=== PATIENT | male | born 1995 | race Caucasian/White ===

== ENCOUNTER 2016-06-21 11:53 | Emergency (ER) | payer OTHER ==
[~2016-06-21] VITALS: Ht 188 cm; Wt 93.0 kg
[~2016-06-21 11:53] MED LIST: FLEXERIL10 MG PO; HYDROCODONE1 TABLET PO
[2016-06-21] MEDS ORDERED: NOMEDS XX (12:24)
--- NOTE | 2016-06-21 12:34 | Emergency Room Report ---
History of Present Illness Time Seen by [id number] Presenting Problem in Triage Pt arrived:Walked Presenting Problem:right testicular pain x 1 week--no known trauma Onset of symptoms date/time:06/1408/24/899 or onset unknown for: Treatment Prior to Arrival: CLAIM TRAINEE Provided by: Sepsis Risk Assessment: Temp: 98.4 B/P: 142/85 MAP: 104 Pulse: 88 Resp: 18 Recent fever? N Clinical Suspician of Infection? N Mental Status: 1 - Regular (Normal Baseline) Sepsis Risk:Low Sepsis Risk Have you (or family members/close friends) recently traveled outside the [place]? N If Yes, where/when: Have you had exposure to infectious disease within the past month? N TB? Other? Specify: Comment The patient complains of RIGHT testicular pain for one week, waxing and waning. Currently 03/20. He denies fever. He says that his testicle was swollen on Wednesday and , but is now not swollen. No trauma or injury. He is sexually active, no penile discharge. No prior similar problems. ALLERGIES Coded Allergies: No Known Allergies (01/17/16) Home Medications Reported Medications No Home Medications (NO HOME MEDICATIONS) 1 EACH XX ONCE History Medical History General Angina: No [place]: No Hypertension? No Hyperlipidemia? No CHF? No DVT? No PE? No COPD? No Asthma? No Anemia? No GERD? No Gastric ulcers? No GI Bleed? No Hernia? No Thyroid Problems? No Hypothyroidism? No CVA? No Seizures? No Diabetes? No Renal Insuffiency? No End Stage Renal Disease? No UTI? No Stones? No BPH? No GB Disease: No Nephritic Syndrome? No Asplenia? No Hepatitis? No Sickle Cell Disease? No Arthritis? No Migraines? No Cataracts? No Glaucoma? No MRSA? No HIV? No TB? No Anxiety? No Depression? No Cancer? No More? No Immunization Hx DT/Tetanus 5-10 Years Ago Surgical Hx Previous Surgery?Y RIGHT FOOT SURGERY Social History Smoking Hx Smoker: Former Smoker Tobacco: No Are you/the child exposed to second-hand smoke: Yes Alcohol Alcohol: Yes Review of Systems All Other Systems Reviewed and Negative Constitutional denies fever Genitourinary scrotal/testicular pain. denies: discharge, frequency, hematuria, penis pain. Physical Exam Vital Signs Vital Signs Date Time Temp Pulse Resp B/P Pulse O2 O2 Flow FiO2 Ox Delivery Rate 06/21 1350 88 18 167/92 98 06/21 1257 86 18 163/100 99 06/21 1220 98.4 88 18 142/85 99 General Appearance normal appearance Respiratory Status No: respiratory distress. Cardiovascular regular rate/rhythm Gastrointestinal normal bowel sounds, normal exam, non tender Male Genitalia circumcised, tenderness RIGHT testicle, no edema, no masses., no discharge or penile lesions, no hernia Neurologic alert, oriented x 3 Medical Decision Making LABS/Meds/Orders Pt receiving controlled substance in ED? No Results/Orders Laboratory Tests 06/21/16 1225: Urine Color YELLOW, Urine Appearance CLEAR, Urine pH 6.0, Ur Specific [place] 1.020, Urine Protein NEGATIVE, Urine Ketones NEGATIVE, Urine Blood NEGATIVE, Urine Nitrate NEGATIVE, Urine Bilirubin NEGATIVE, Urine Urobilinogen 0.2, Ur Leukocyte Esterase NEGATIVE, Urine Bacteria TRACE, Urine Glucose NEGATIVE Current Medication Orders Sig/Cleopatra Start time Last Medication Dose Route Stop Time Status Admin Azithromycin 1,000 MG ONCE ONE 06/21 1415 AC PO 06/21 1416 Ceftriaxone Sodium 250 MG ONCE ONE 06/21 1415 AC IM 06/21 1416 Lidocaine HCl 0.9 ML ONCE ONE 06/21 1415 AC IM 06/21 1416 Orders Procedure Date/time Status US SCROTUM 06/21 1241 Active CHL/GC URINE 06/21 1241 Active URINALYSIS/COMPLETE 06/21 1234 Complete XRAY/CT/US XRAY/CT/US Ultrasound scrotum Comment As per [facility] procedure, ultrasound report received from railway signal technician: No signs of testicular torsion Departure Departure Disposition DC Home or Self Care(routine) Clinical Impression Primary Impression: Epididymitis Condition STABLE Referrals Kayla LUCERO,Julio Mcginnis Call for appointment Patient Instructions DI for Epididymitis Additional Instructions Off work until Wednesday06/24/16. Prescriptions Current Visit Scripts Ciprofloxacin HCl (Cipro 500MG TAB) 500 MG PO BID #20 TAB Naproxen (Naprosyn 500MG Tab) 500 MG PO BID #14 TAB ED Critical Care Critical Care No at 1406
--- NOTE | 2016-06-21 12:34 | Emergency Room Report ---
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 N Clinical Suspician of Infection? N Mental Status: 1 - Regular (Normal Baseline) Sepsis Risk:Low Sepsis Risk Have you (or family members/close friends) recently traveled outside the [place]? N If Yes, where/when: Have you had exposure to infectious disease within the past month? N TB? Other? Specify: Comment The patient complains of RIGHT testicular pain for one week, waxing and waning. Currently 03/20. He denies fever. He says that his testicle was swollen on Wednesday and , but is now not swollen. No trauma or injury. He is sexually active, no penile discharge. No prior similar problems. ALLERGIES Coded Allergies: No Known Allergies (01/17/16) Home Medications Reported Medications No Home Medications (NO HOME MEDICATIONS) 1 EACH XX ONCE History Medical History General Angina: No [place]: No Hypertension? No Hyperlipidemia? No CHF? No DVT? No PE? No COPD? No Asthma? No Anemia? No GERD? No Gastric ulcers? No GI Bleed? No Hernia? No Thyroid Problems? No Hypothyroidism? No CVA? No Seizures? No Diabetes? No Renal Insuffiency? No End Stage Renal Disease? No UTI? No Stones? No BPH? No GB Disease: No Nephritic Syndrome? No Asplenia? No Hepatitis? No Sickle Cell Disease? No Arthritis? No Migraines? No Cataracts? No Glaucoma? No MRSA? No HIV? No TB? No Anxiety? No Depression? No Cancer? No More? No Immunization Hx DT/Tetanus 5-10 Years Ago Surgical Hx Previous Surgery?Y RIGHT FOOT SURGERY Social History Smoking Hx Smoker: Former Smoker Tobacco: No Are you/the child exposed to second-hand smoke: Yes Alcohol Alcohol: Yes Review of Systems All Other Systems Reviewed and Negative Constitutional denies fever Genitourinary scrotal/testicular pain. denies: discharge, frequency, hematuria, penis pain. Physical Exam Vital Signs Vital Signs Date Time Temp Pulse Resp B/P Pulse O2 O2 Flow FiO2 Ox Delivery Rate 06/21 1350 88 18 167/92 98 06/21 1257 86 18 163/100 99 06/21 1220 98.4 88 18 142/85 99 General Appearance normal appearance Respiratory Status No: respiratory distress. Cardiovascular regular rate/rhythm Gastrointestinal normal bowel sounds, normal exam, non tender Male Genitalia circumcised, tenderness RIGHT testicle, no edema, no masses., no discharge or penile lesions, no hernia Neurologic alert, oriented x 3 Medical Decision Making LABS/Meds/Orders Pt receiving controlled substance in ED? No Results/Orders Laboratory Tests 06/21/16 1225: Urine Color YELLOW, Urine Appearance CLEAR, Urine pH 6.0, Ur Specific [place] 1.020, Urine Protein NEGATIVE, Urine Ketones NEGATIVE, Urine Blood NEGATIVE, Urine Nitrate NEGATIVE, Urine Bilirubin NEGATIVE, Urine Urobilinogen 0.2, Ur Leukocyte Esterase NEGATIVE, Urine Bacteria TRACE, Urine Glucose NEGATIVE Current Medication Orders Sig/Cleopatra Start time Last Medication Dose Route Stop Time Status Admin Azithromycin 1,000 MG ONCE ONE 06/21 1415 AC PO 06/21 1416 Ceftriaxone Sodium 250 MG ONCE ONE 06/21 1415 AC IM 06/21 1416 Lidocaine HCl 0.9 ML ONCE ONE 06/21 1415 AC IM 06/21 1416 Orders Procedure Date/time Status US SCROTUM 06/21 1241 Active CHL/GC URINE 06/21 1241 Active URINALYSIS/COMPLETE 06/21 1234 Complete XRAY/CT/US XRAY/CT/US Ultrasound scrotum Comment As per [facility] procedure, ultrasound report received from photographic reproduction technician: No signs of testicular torsion Departure Departure Disposition DC Home or Self Care(routine) Clinical Impression Primary Impression: Epididymitis Condition STABLE Referrals Kayla LUCERO,Julio Mcginnis Call for appointment Patient Instructions DI for Epididymitis Additional Instructions Off work until Wednesday06/24/16. Prescriptions Current Visit Scripts Ciprofloxacin HCl (Cipro 500MG TAB) 500 MG PO BID #20 TAB Naproxen (Naprosyn 500MG Tab) 500 MG PO BID #14 TAB ED Critical Care Critical Care No at 1406
[2016-06-21 12:38] LABS: URINE BILIRUBIN - DIPSTICK NEGATIVE (NEG); URINE BLOOD NEGATIVE (NEG)
[2016-06-21] MEDS ORDERED: CIPRO 500MG TA500 MG PO (14:04)
[2016-06-21] MEDS ORDERED: NAPROSYN500 M1 PO (14:04)
[2016-06-21 14:17] VITALS: BP 167/92
--- NOTE | 2016-06-21 15:30 | RADIOLOGY REPORT PS360 ---
US SCROTUM COMPARISON: None HISTORY: Testicular pain for one week no known injury TECHNIQUE: Targeted ultrasound of the scrotum FINDINGS: Both testicles are imaged both appearing normal showing homogeneous echogenicity. The epididymis appears normal bilaterally. There is normal vascular flow to each testicle. IMPRESSION: Normal testicles bilaterally by ultrasound
[2016-06-24 12:37] LABS: Neisseria gonorrhoeae, NAA Negative (Negative)
== END 2016-06-21 14:25 | disposition home or self-care (01) ==
LOC: ER 11:53
PROVIDERS: Emergency Medicine
DX: N45.1 Epididymitis (principal)